=== PATIENT | male | born 1935 | race Caucasian/White ===

== ENCOUNTER 2017-01-23 13:04 | Emergency (ER) | payer MEDICARE ==
[~2017-01-23] VITALS: Ht 172.7 cm; Wt 65.0 kg
[~2017-01-23 13:04] MED LIST: AGGRENOX 200/251 CAP OR; ANTACID OR; ASA LO-DOSE81 MG OR; ATORVASTATIN CA10 MG PO; AZITHROMYCIN500 MG OR; BABY ASPIRIN81 MG OR; BABY ASPIRIN81 MG PO; BACTRIM DS1 TAB PO; BAYER ASPIRIN E81 MG PO; BENZONATATE200 MG PO; CALCIUM + D3 601 TAB PO; CARAFATE OR; CARB/LEVO1 TA5 PO; CARDIZEM CD120 MG PO; CARDIZEM60 MG PO; CINNAMON500 MG PO; CLOPIDOGREL75 MG PO; CO Q 1010 MG PO; COUMADIN2.5 MG OR; COUMADIN5 MG OR; CYCLOBENZAPRINE5 MG; DEPO-MEDROL80 MG/ML IM; DILTIAZEM HCL120 MG PO; DILTIAZEM120 M1 PO; DILTIAZEM120 M2 PO; DILTIAZEM120 M3 PO; DOXYCYCL HYC100 MG PO; FISH OIL CON1000 MG OR; FISH OIL CON300 MG OR; FLEXERIL5 M1 PO; FLOMAX0.4 M1 PO; FLONASE NASAL50 MCG; FLUTICASONE50 MCG IN; GLUCOSAMINE1 TAB OR; GLUCOSAMINE1000 MG OR; GNP RED YEAST RICE PO; HYDROCHLOR12.5 MG/CA PO; HYDROCHLORO25 MG/TAB PO; HYDROCHLOROT12.5 MG PO; HYDROCHLOROT25 MG OR; HYDROCHLOROT25 MG PO; IRON18 M1 OR; IRON325 M1 PO; K-TABS10 MEQ PO; KEFLEX500 MG OR; LASIX 10 MG10 MG/TA1 PO; LASIX 20 MG20 MG/TAB PO; LASIX20 MG PO; LIDOCAINE5 % TOP; LISINOPRIL20 MG OR; LOVASTATIN40 MG OR; MECLIZINE25 MG PO; MENS MULTI PO; MILK OF MAG2 OR; MULTI VITAMN OR; MULTIVITAM10 OR; MYLICON PO; NASONEX50 MCG/AC; NASONEX50 MCG/AC NAB; OMEPRAZOLE40 MG PO; OMNICEF300 MG OR; PERCOCET 5/325M1 TAB PO; PRAVASTATIN SOD20 MG PO; PREDNISONE20 MG PO; PRILOSEC20 MG OR; PRILOSEC20 MG PO; PRILOSEC40 MG PO; PROAIR HFA IN; PROMETHAZINE25 M1 OR; PROMETHAZINE25 MG PO; PROPRANOLOL HCL60 M1 PO; PROPRANOLOL HCL80 MG PO; PROPRANOLOL120 MG PO; PROPRANOLOL60 MG OR; PROPRANOLOL80 M1 OR; PROPRANOLOL80 M1 PO; PROTONIX40 M2 PO; REGLAN10 MG OR; SIMVASTATIN80 MG OR; SINEMET 25/1001 TA1 PO; SPIRIVA HANDIHALER IN; TENORMIN OR; TIZANIDINE HCL2 M1 PO; TRIAM/NYSTAT TOP; TRIAMCINOLON0.11 EX; ULTRAM50 M1 OR; VITAMIN C500 M1 OR; VITAMIN C500 MG OR; WARFARIN1 MG PO; WARFARIN2.5 MG PO; WARFARIN5 MG OR; WARFARIN5 MG PO; ZETIA10 MG OR; ZITHROMAX250 MG PO; ZITHROMAX500 MG PO; ZOSTAVAX IM; [UNRECOGNIZED DRUG - OTHER] PO
[2017-01-23 13:49] LABS: HEMATOCRIT 48.1 % (39.0-50.0); HEMOGLOBIN 15.2 g/dl (14.0-18.0); MEAN CELL VOLUME 89.1 fL CALC (80.0-100.0); MEAN CORPUSCULAR HGB 28.1 pG CALC (26.0-32.0); MEAN CORPUSCULAR HGB CONC 31.6 g/L CALC (32.0-36.0); NEUT# 7.84 thou/uL (1.82-7.42); RED BLOOD COUNT 5.4 mill/uL (4.70-6.10); RED CELL DISTRI WIDTH 18.1 % (11.5-15.5)
[2017-01-23 14:02] LABS: CARBON DIOXIDE 26 mmol/l (22-30); CHLORIDE 102 mmol/l (95-108)
[2017-01-23 14:04] LABS: PROTHROMBIN TIME 23.1 SECONDS (9.0-12.5)
[2017-01-23 14:15] LABS: MYOGLOBIN 28 ng/mL (0 - 121)
[2017-01-23 14:39] LABS: ALKALINE PHOSPHATASE 114 u/l (38-126); ANION GAP 16 (6-22 (CALC)); BUN 22 mg/dL (8-23); BUN/CREATININE RATIO 25 (12-20 (CALC)); CALCIUM 10.3 mg/dL (8.4-10.2); CREATININE 0.9 mg/dL (0.7-1.3); GFR > 60 ML/MIN (>=60 (CALC)); GFR FOR AFR.AMER. > 60 ML/MIN (>=60 (CALC)); GLUCOSE 94 mg/dL (82-115); POTASSIUM 4.8 mmol/l (3.5-5.1); SGOT/AST 48 u/l (19-48); SGPT/ALT 24 u/l (11-66); SODIUM 139 mmol/l (137-146); TOTAL PROTEIN 8.7 g/dL (6.3-8.2)
[2017-01-23 15:08] VITALS: BP 135/67
== END 2017-01-23 15:14 | disposition home or self-care (01) ==
LOC: ED 13:04
PROVIDERS: Emergency Medicine
PROC: 0W993ZZ Drainage of Right Pleural Cavity, Percutaneous Approach (ICD-10-PCS; principal; 2017-01-23)
DX: J90 Pleural effusion, not elsewhere classified (principal); R94.31 Abnormal electrocardiogram [ECG] [EKG]; R06.02 Shortness of breath

== ENCOUNTER 2017-02-12 12:14 | Emergency (ER) | payer MEDICARE ==
[~2017-02-12] VITALS: Ht 172.7 cm; Wt 72.0 kg
[2017-02-12] MEDS ORDERED: PROAIR HFA IN (12:31)
[2017-02-12] MEDS ORDERED: ASPIRIN ADULT L81 MG PO (12:31)
[2017-02-12 12:54] LABS: HEMATOCRIT 43.5 % (39.0-50.0); IMMATURE GRANULOCYTES 1.7 % (0.0-1.0); MEAN CELL VOLUME 91.2 fL CALC (80.0-100.0); MEAN CORPUSCULAR HGB 29.4 pG CALC (26.0-32.0); MEAN CORPUSCULAR HGB CONC 32.2 g/L CALC (32.0-36.0); NEUT# 10.2 thou/uL (1.82-7.42); RED BLOOD COUNT 4.77 mill/uL (4.70-6.10); RED CELL DISTRI WIDTH 16.6 % (11.5-15.5)
[2017-02-12 13:00] LABS: ALBUMIN 3.7 g/dL (3.2-5.0); ALKALINE PHOSPHATASE 72 u/l (38-126); ANION GAP 16 (6-22 (CALC)); BILIRUBIN, TOTAL 0.7 mg/dL (0.0-1.4); BUN 26 mg/dL (8-23); BUN/CREATININE RATIO 36 (12-20 (CALC)); CALCIUM 9.7 mg/dL (8.4-10.2); CARBON DIOXIDE 24 mmol/l (22-30); CHLORIDE 108 mmol/l (95-108); CREATININE 0.7 mg/dL (0.7-1.3); GFR > 60 ML/MIN (>=60 (CALC)); GFR FOR AFR.AMER. > 60 ML/MIN (>=60 (CALC)); GLUCOSE 87 mg/dL (82-115); POTASSIUM 4.8 mmol/l (3.5-5.1); SGOT/AST 41 u/l (19-48); SGPT/ALT 26 u/l (11-66); SODIUM 143 mmol/l (137-146); TOTAL PROTEIN 7.6 g/dL (6.3-8.2)
[2017-02-12 13:12] LABS: MYOGLOBIN 26 ng/mL (0 - 121)
[2017-02-12 13:39] LABS: URINE BILIRUBIN - DIPSTICK NEGATIVE (NEGATIVE); URINE BLOOD DIPSTICK NEGATIVE (NEGATIVE); URINE CLARITY CLEAR; URINE COLOR YELLOW; URINE GLUCOSE - DIPSTICK NEGATIVE (NEGATIVE); URINE KETONE TRACE mg/dL (NEGATIVE); URINE LEUK ESTERASE NEGATIVE (NEGATIVE); URINE NITRITE - DIPSTICK NEGATIVE (Negative); URINE PROTEIN - DIPSTICK NEGATIVE (NEG-TRACE); URINE SPECIFIC GRAVITY 1.025
[2017-02-12 15:50] VITALS: BP 133/63
== END 2017-02-12 15:50 | disposition home or self-care (01) ==
LOC: ED 12:14
PROVIDERS: Emergency Medicine
DX: M62.81 Muscle weakness (generalized) (principal); K21.9 Gastro-esophageal reflux disease without esophagitis; I10 Essential (primary) hypertension; J44.9 Chronic obstructive pulmonary disease, unspecified; E78.5 Hyperlipidemia, unspecified; G25.0 Essential tremor; Z86.73 Personal history of transient ischemic attack (TIA), and cerebral infarction without residual deficits; Z95.1 Presence of aortocoronary bypass graft; Z95.0 Presence of cardiac pacemaker; R94.31 Abnormal electrocardiogram [ECG] [EKG]

== ENCOUNTER 2017-02-18 23:47 | Emergency (ER) | payer MEDICARE ==
[~2017-02-18] VITALS: Ht 172.7 cm; Wt 63.6 kg
[~2017-02-18 23:47] MED LIST changes: +ASPIRIN ADULT L81 MG PO
[2017-02-19 01:00] VITALS: BP 166/79
== END 2017-02-19 01:18 | disposition home or self-care (01) ==
LOC: ED 23:47
PROC: 0HQ1XZZ Repair Face Skin, External Approach (ICD-10-PCS; principal; 2017-02-19)
DX: S01.81XA Laceration without foreign body of other part of head, initial encounter (principal); S41.112A Laceration without foreign body of left upper arm, initial encounter; W06.XXXA Fall from bed, initial encounter; Y93.89 Activity, other specified; Y92.003 Bedroom of unspecified non-institutional (private) residence as the place of occurrence of the external cause

== ENCOUNTER 2017-02-27 14:08 | Inpatient (IN) | payer MEDICARE ==
[~2017-02-27] VITALS: Ht 172.7 cm; Wt 62.0 kg
[2017-02-27 15:02] LABS: HEMATOCRIT 40.9 % (39.0-50.0); HEMOGLOBIN 13.6 g/dl (14.0-18.0); IMMATURE GRANULOCYTES 0.9 % (0.0-1.0); MEAN CELL VOLUME 90.3 fL CALC (80.0-100.0); MEAN CORPUSCULAR HGB CONC 33.3 g/L CALC (32.0-36.0); NEUT# 6.95 thou/uL (1.82-7.42); RED BLOOD COUNT 4.53 mill/uL (4.70-6.10); RED CELL DISTRI WIDTH 15.5 % (11.5-15.5)
[2017-02-27 15:20] LABS: ALBUMIN 3.4 g/dL (3.2-5.0); ALKALINE PHOSPHATASE 83 u/l (38-126); ANION GAP 17 (6-22 (CALC)); BILIRUBIN, TOTAL 0.7 mg/dL (0.0-1.4); BUN 17 mg/dL (8-23); BUN/CREATININE RATIO 21 (12-20 (CALC)); CALCIUM 9.5 mg/dL (8.4-10.2); CARBON DIOXIDE 23 mmol/l (22-30); CHLORIDE 107 mmol/l (95-108); CREATININE 0.8 mg/dL (0.7-1.3); GFR > 60 ML/MIN (>=60 (CALC)); GFR FOR AFR.AMER. > 60 ML/MIN (>=60 (CALC)); GLUCOSE 108 mg/dL (82-115); POTASSIUM 4.4 mmol/l (3.5-5.1); SGOT/AST 24 u/l (19-48); SGPT/ALT 23 u/l (11-66); SODIUM 143 mmol/l (137-146); TOTAL PROTEIN 7.6 g/dL (6.3-8.2)
[2017-02-27 15:24] LABS: INTERNATIONAL NORMALIZED RATIO 2.6 RATIO (0.7-1.3); PROTHROMBIN TIME 29.9 SECONDS (9.0-12.5)
[2017-02-27] MEDS ORDERED: COUMADIN2.5 MG PO (17:02)
[2017-02-27] MEDS ORDERED: DILTIAZEM60 M1 PO (17:04)
[2017-02-27] MEDS ORDERED: INDERAL 40MG TA40 MG PO (17:05)
[2017-02-27] MEDS ORDERED: SINEMET CR PO (17:06)
[2017-02-27 17:27] LABS: URINE BILIRUBIN - DIPSTICK NEGATIVE (NEGATIVE); URINE BLOOD DIPSTICK NEGATIVE (NEGATIVE); URINE CLARITY CLEAR; URINE COLOR YELLOW; URINE GLUCOSE - DIPSTICK NEGATIVE (NEGATIVE); URINE KETONE NEGATIVE (NEGATIVE); URINE LEUK ESTERASE NEGATIVE (NEGATIVE); URINE NITRITE - DIPSTICK NEGATIVE (Negative); URINE PROTEIN - DIPSTICK NEGATIVE (NEG-TRACE); URINE SPECIFIC GRAVITY 1.025
[2017-02-27 18:08] VITALS: BP 175/93
[2017-02-28] VITALS (8 sets, daily range): BP systolic 94–156; BP diastolic 45–99
[2017-02-28 05:43] LABS: HEMATOCRIT 40.8 % (39.0-50.0); HEMOGLOBIN 13.4 g/dl (14.0-18.0); MEAN CELL VOLUME 90.9 fL CALC (80.0-100.0); MEAN CORPUSCULAR HGB 29.8 pG CALC (26.0-32.0); MEAN CORPUSCULAR HGB CONC 32.8 g/L CALC (32.0-36.0); NEUT# 6.27 thou/uL (1.82-7.42); RED BLOOD COUNT 4.49 mill/uL (4.70-6.10); RED CELL DISTRI WIDTH 15.4 % (11.5-15.5)
[2017-02-28 06:02] LABS: ANION GAP 14 (6-22 (CALC)); BUN 15 mg/dL (8-23); BUN/CREATININE RATIO 20 (12-20 (CALC)); CALCIUM 9.2 mg/dL (8.4-10.2); CARBON DIOXIDE 26 mmol/l (22-30); CHLORIDE 105 mmol/l (95-108); CREATININE 0.8 mg/dL (0.7-1.3); GFR > 60 ML/MIN (>=60 (CALC)); GFR FOR AFR.AMER. > 60 ML/MIN (>=60 (CALC)); GLUCOSE 72 mg/dL (82-115); POTASSIUM 4.3 mmol/l (3.5-5.1); SODIUM 141 mmol/l (137-146)
[2017-02-28 09:25] LABS: PROTHROMBIN TIME 23.2 SECONDS (9.0-12.5)
[2017-03-01 03:30] VITALS: BP 128/80
[2017-03-01 05:10] LABS: INTERNATIONAL NORMALIZED RATIO 1.9 RATIO (0.7-1.3); PROTHROMBIN TIME 21.4 SECONDS (9.0-12.5)
[2017-03-01 08:31] VITALS: BP 133/86
[2017-03-01 12:43] VITALS: BP 114/68
[2017-03-01 15:47] VITALS: BP 112/67
[2017-03-01 19:25] VITALS: BP 124/76
[2017-03-01 23:47] VITALS: BP 101/59
[2017-03-02 04:45] VITALS: BP 105/64
[2017-03-02 08:10] VITALS: BP 122/66
[2017-03-02 09:49] LABS: PROTHROMBIN TIME 22.8 SECONDS (9.0-12.5)
[2017-03-02 11:11] VITALS: BP 130/72
[2017-03-02] MEDS ORDERED: TRAMADOL HCL50 MG PO (12:47)
[2017-03-02] MEDS ORDERED: ZITHROMAX500 MG PO (13:15)
[2017-03-02] MEDS ORDERED: INVANZ1 GM IJ (13:15)
[2017-03-02 16:49] VITALS: BP 122/65
[2017-03-02 20:45] VITALS: BP 105/63
[2017-03-03 00:55] VITALS: BP 139/76
[2017-03-03 04:47] VITALS: BP 127/81
[2017-03-03 05:55] LABS: HEMATOCRIT 39.7 % (39.0-50.0); HEMOGLOBIN 12.7 g/dl (14.0-18.0); IMMATURE GRANULOCYTES 1.1 % (0.0-1.0); MEAN CELL VOLUME 92.8 fL CALC (80.0-100.0); MEAN CORPUSCULAR HGB 29.7 pG CALC (26.0-32.0); NEUT# 6.45 thou/uL (1.82-7.42); RED BLOOD COUNT 4.28 mill/uL (4.70-6.10); RED CELL DISTRI WIDTH 15.2 % (11.5-15.5)
[2017-03-03 06:12] LABS: ANION GAP 14 (6-22 (CALC)); BUN 15 mg/dL (8-23); BUN/CREATININE RATIO 23 (12-20 (CALC)); CALCIUM 8.8 mg/dL (8.4-10.2); CARBON DIOXIDE 24 mmol/l (22-30); CHLORIDE 106 mmol/l (95-108); CREATININE 0.6 mg/dL (0.7-1.3); GFR > 60 ML/MIN (>=60 (CALC)); GFR FOR AFR.AMER. > 60 ML/MIN (>=60 (CALC)); GLUCOSE 76 mg/dL (82-115); INTERNATIONAL NORMALIZED RATIO 2.3 RATIO (0.7-1.3); POTASSIUM 4.3 mmol/l (3.5-5.1); PROTHROMBIN TIME 26.6 SECONDS (9.0-12.5); SODIUM 140 mmol/l (137-146)
[2017-03-03 08:14] VITALS: BP 154/89
[2017-03-03 11:09] VITALS: BP 123/62
[2017-03-03 15:00] VITALS: BP 112/57
[2017-03-03 19:18] VITALS: BP 128/67
[2017-03-04 00:20] VITALS: BP 113/77
[2017-03-04 04:00] VITALS: BP 116/70
[2017-03-04 05:18] VITALS: BP 142/75
[2017-03-04 05:37] LABS: INTERNATIONAL NORMALIZED RATIO 2.6 RATIO (0.7-1.3); PROTHROMBIN TIME 30.6 SECONDS (9.0-12.5)
[2017-03-04 09:12] VITALS: BP 132/77
[2017-03-04 11:23] VITALS: BP 114/56
[2017-03-04] MEDS ORDERED: INVANZ1 GM IJ (11:55)
[2017-03-04] MEDS ORDERED: ZITHROMAX500 MG PO (11:55)
== END 2017-03-04 14:35 | DRG 190 ==
LOC: ENPENDDIS → ED 14:08 → ED-I 16:58 → ED 17:20 → MS2 17:21
PROVIDERS: Emergency Medicine; Internal Medicine; ADMIT Internal Medicine; ATTEND Internal Medicine
DX: J44.0 Chronic obstructive pulmonary disease with (acute) lower respiratory infection (principal); J18.9 Pneumonia, unspecified organism; I48.91 Unspecified atrial fibrillation; Z99.81 Dependence on supplemental oxygen; Z95.1 Presence of aortocoronary bypass graft; S01.91XA Laceration without foreign body of unspecified part of head, initial encounter; S00.83XA Contusion of other part of head, initial encounter; K27.9 Peptic ulcer, site unspecified, unspecified as acute or chronic, without hemorrhage or perforation; S80.02XA Contusion of left knee, initial encounter; S30.1XXA Contusion of abdominal wall, initial encounter; S70.02XA Contusion of left hip, initial encounter; I25.10 Atherosclerotic heart disease of native coronary artery without angina pectoris; R53.1 Weakness; K21.9 Gastro-esophageal reflux disease without esophagitis; I10 Essential (primary) hypertension; E78.5 Hyperlipidemia, unspecified; G25.0 Essential tremor; W18.39XA Other fall on same level, initial encounter; Y92.009 Unspecified place in unspecified non-institutional (private) residence as the place of occurrence of the external cause; Z87.891 Personal history of nicotine dependence; Z90.3 Acquired absence of stomach [part of]; Z91.81 History of falling; Z88.8 Allergy status to other drugs, medicaments and biological substances; Z86.73 Personal history of transient ischemic attack (TIA), and cerebral infarction without residual deficits; Z95.820 Peripheral vascular angioplasty status with implants and grafts; Z95.0 Presence of cardiac pacemaker; Z79.01 Long term (current) use of anticoagulants
CPT/HCPCS: J1335; Q9967

== ENCOUNTER 2017-03-14 04:17 | Inpatient (IN) | payer MEDICARE ==
[2017-03-14] VITALS (7 sets, daily range): BP systolic 140–170; BP diastolic 79–93
[~2017-03-14] VITALS: Ht 172.7 cm; Wt 63.0 kg
[~2017-03-14 04:17] MED LIST changes: +COUMADIN2.5 MG PO; +DILTIAZEM60 M1 PO; +INDERAL 40MG TA40 MG PO; +INVANZ1 GM IJ; +SINEMET CR PO; +TRAMADOL HCL50 MG PO
[2017-03-14] MEDS ORDERED: INDERAL 40MG TA40 MG PO (04:35)
[2017-03-14] MEDS ORDERED: COUMADIN2.5 MG PO (04:36)
[2017-03-14] MEDS ORDERED: COUMADIN5 MG PO (04:37)
[2017-03-14] MEDS ORDERED: PRILOSEC20 MG PO (04:39)
[2017-03-14] MEDS ORDERED: SINEMET 25/1001 TA1 PO (04:41)
[2017-03-14] MEDS ORDERED: [UNRECOGNIZED DRUG - CODE] PO (04:43)
[2017-03-14 05:22] LABS: HEMATOCRIT 36.5 % (39.0-50.0); HEMOGLOBIN 11.7 g/dl (14.0-18.0); IMMATURE GRANULOCYTES 0.8 % (0.0-1.0); MEAN CELL VOLUME 94.3 fL CALC (80.0-100.0); MEAN CORPUSCULAR HGB 30.2 pG CALC (26.0-32.0); MEAN CORPUSCULAR HGB CONC 32.1 g/L CALC (32.0-36.0); NEUT# 8.26 thou/uL (1.82-7.42); RED BLOOD COUNT 3.87 mill/uL (4.70-6.10); RED CELL DISTRI WIDTH 14.9 % (11.5-15.5)
[2017-03-14 05:22] LABS: URINE BILIRUBIN - DIPSTICK NEGATIVE (NEGATIVE); URINE BLOOD DIPSTICK TRACE-INTACT (NEGATIVE); URINE CLARITY CLEAR; URINE COLOR YELLOW; URINE GLUCOSE - DIPSTICK NEGATIVE (NEGATIVE); URINE KETONE NEGATIVE (NEGATIVE); URINE LEUK ESTERASE NEGATIVE (NEGATIVE); URINE NITRITE - DIPSTICK NEGATIVE (Negative); URINE PROTEIN - DIPSTICK NEGATIVE (NEG-TRACE); URINE UROBILINOGEN - DIPSTICK 0.2 E.U./dL (0.2)
[2017-03-14 05:42] LABS: INTERNATIONAL NORMALIZED RATIO 4.5 RATIO (0.7-1.3)
[2017-03-14 05:44] LABS: PROTHROMBIN TIME 54.8 SECONDS (9.0-12.5)
[2017-03-14 06:13] LABS: ALBUMIN 3.1 g/dL (3.2-5.0); ALKALINE PHOSPHATASE 117 u/l (38-126); ANION GAP 12 (6-22 (CALC)); BILIRUBIN, TOTAL 0.7 mg/dL (0.0-1.4); BUN 13 mg/dL (8-23); BUN/CREATININE RATIO 23 (12-20 (CALC)); CALCIUM 8.7 mg/dL (8.4-10.2); CARBON DIOXIDE 22 mmol/l (22-30); CHLORIDE 109 mmol/l (95-108); CREATININE 0.6 mg/dL (0.7-1.3); GFR > 60 ML/MIN (>=60 (CALC)); GFR FOR AFR.AMER. > 60 ML/MIN (>=60 (CALC)); GLUCOSE 84 mg/dL (82-115); POTASSIUM 3.6 mmol/l (3.5-5.1); SGOT/AST 22 u/l (19-48); SGPT/ALT 34 u/l (11-66); SODIUM 139 mmol/l (137-146)
[2017-03-15 05:15] VITALS: BP 156/64
[2017-03-15 05:35] LABS: HEMATOCRIT 31.9 % (39.0-50.0); HEMOGLOBIN 10.4 g/dl (14.0-18.0); MEAN CELL VOLUME 93.5 fL CALC (80.0-100.0); MEAN CORPUSCULAR HGB 30.5 pG CALC (26.0-32.0); MEAN CORPUSCULAR HGB CONC 32.6 g/L CALC (32.0-36.0); NEUT# 8.95 thou/uL (1.82-7.42); RED BLOOD COUNT 3.41 mill/uL (4.70-6.10); RED CELL DISTRI WIDTH 14.6 % (11.5-15.5)
[2017-03-15 05:46] LABS: ANION GAP 11 (6-22 (CALC)); BUN 9 mg/dL (8-23); BUN/CREATININE RATIO 18 (12-20 (CALC)); CALCIUM 8.7 mg/dL (8.4-10.2); CARBON DIOXIDE 23 mmol/l (22-30); CHLORIDE 105 mmol/l (95-108); CREATININE 0.5 mg/dL (0.7-1.3); GFR > 60 ML/MIN (>=60 (CALC)); GFR FOR AFR.AMER. > 60 ML/MIN (>=60 (CALC)); GLUCOSE 86 mg/dL (82-115); POTASSIUM 4.2 mmol/l (3.5-5.1); SODIUM 135 mmol/l (137-146)
[2017-03-15 05:48] LABS: INTERNATIONAL NORMALIZED RATIO 1.1 RATIO (0.7-1.3); PROTHROMBIN TIME 12.2 SECONDS (9.0-12.5)
[2017-03-15 07:44] VITALS: BP 135/74
[2017-03-15] MEDS ORDERED: LORTAB 5-325 MG1 TAB PO (10:58)
[2017-03-15 12:30] VITALS: BP 136/71
[2017-03-15 14:17] LABS: URINE BLOOD DIPSTICK NEGATIVE (NEGATIVE); URINE CLARITY CLEAR; URINE COLOR YELLOW; URINE GLUCOSE - DIPSTICK NEGATIVE (NEGATIVE); URINE KETONE NEGATIVE (NEGATIVE); URINE LEUK ESTERASE NEGATIVE (NEGATIVE); URINE NITRITE - DIPSTICK NEGATIVE (Negative); URINE PROTEIN - DIPSTICK TRACE mg/dL (NEG-TRACE)
[2017-03-15 14:19] LABS: URINE BILIRUBIN - DIPSTICK NEGATIVE (NEGATIVE)
== END 2017-03-15 16:01 | DRG 948 ==
LOC: ENPENDDIS → ED 04:17 → ED-I 06:38 → ED 06:53 → MS2 06:54
PROVIDERS: Emergency Medicine; Internal Medicine; Nurse Practitioner Family; ADMIT Internal Medicine; ATTEND Internal Medicine
PROC: 30233K1 Transfusion of Nonautologous Frozen Plasma into Peripheral Vein, Percutaneous Approach (ICD-10-PCS; principal; 2017-03-14)
DX: R79.1 Abnormal coagulation profile (principal); S32.029A Unspecified fracture of second lumbar vertebra, initial encounter for closed fracture; I48.91 Unspecified atrial fibrillation; J44.9 Chronic obstructive pulmonary disease, unspecified; E78.5 Hyperlipidemia, unspecified; I10 Essential (primary) hypertension; G25.0 Essential tremor; T45.515A Adverse effect of anticoagulants, initial encounter; R53.1 Weakness; I25.10 Atherosclerotic heart disease of native coronary artery without angina pectoris; K21.9 Gastro-esophageal reflux disease without esophagitis; S00.93XA Contusion of unspecified part of head, initial encounter; S30.0XXA Contusion of lower back and pelvis, initial encounter; W18.30XA Fall on same level, unspecified, initial encounter; S32.039D Unspecified fracture of third lumbar vertebra, subsequent encounter for fracture with routine healing; S22.089D Unspecified fracture of T11-T12 vertebra, subsequent encounter for fracture with routine healing; X58.XXXD Exposure to other specified factors, subsequent encounter; Y92.029 Unspecified place in mobile home as the place of occurrence of the external cause; Z86.73 Personal history of transient ischemic attack (TIA), and cerebral infarction without residual deficits; Z91.81 History of falling; Z87.891 Personal history of nicotine dependence; Z95.820 Peripheral vascular angioplasty status with implants and grafts; Z95.1 Presence of aortocoronary bypass graft; Z95.0 Presence of cardiac pacemaker

== ENCOUNTER 2017-06-21 11:16 | Observation (INO) | payer MEDICARE ==
[~2017-06-21] VITALS: Ht 170.2 cm; Wt 72.1 kg
[~2017-06-21 11:16] MED LIST changes: +COUMADIN5 MG PO; +LORTAB 5-325 MG1 TAB PO; +[UNRECOGNIZED DRUG - CODE] PO
[2017-06-21 12:04] LABS: HEMATOCRIT 40.5 % (39.0-50.0); HEMOGLOBIN 12.8 g/dl (14.0-18.0); IMMATURE GRANULOCYTES 0.5 % (0.0-1.0); MEAN CELL VOLUME 93.3 fL CALC (80.0-100.0); MEAN CORPUSCULAR HGB 29.5 pG CALC (26.0-32.0); MEAN CORPUSCULAR HGB CONC 31.6 g/L CALC (32.0-36.0); NEUT# 5.59 thou/uL (1.82-7.42); RED BLOOD COUNT 4.34 mill/uL (4.70-6.10)
[2017-06-21 12:18] LABS: ALBUMIN 3.5 g/dL (3.2-5.0); ALKALINE PHOSPHATASE 127 u/l (38-126); ANION GAP 15 (6-22 (CALC)); BILIRUBIN, TOTAL 1.5 mg/dL (0.0-1.4); BUN 21 mg/dL (8-23); BUN/CREATININE RATIO 27 (12-20 (CALC)); CALCIUM 9.1 mg/dL (8.4-10.2); CARBON DIOXIDE 26 mmol/l (22-30); CHLORIDE 101 mmol/l (95-108); CREATININE 0.8 mg/dL (0.7-1.3); GFR > 60 ML/MIN (>=60 (CALC)); GFR FOR AFR.AMER. > 60 ML/MIN (>=60 (CALC)); GLUCOSE 110 mg/dL (82-115); INTERNATIONAL NORMALIZED RATIO 1.6 RATIO (0.7-1.3); PROTHROMBIN TIME 18.2 SECONDS (9.0-12.5); SGOT/AST 72 u/l (19-48); SGPT/ALT 24 u/l (11-66); SODIUM 139 mmol/l (137-146)
[2017-06-21 17:20] VITALS: BP 200/113
[2017-06-21 17:45] VITALS: BP 206/102
[2017-06-21 19:25] VITALS: BP 90/44
[2017-06-21 20:43] VITALS: BP 95/50
[2017-06-22 00:20] VITALS: BP 99/55
[2017-06-22 04:32] VITALS: BP 110/54
[2017-06-22 08:23] VITALS: BP 125/74
[2017-06-22 13:00] VITALS: BP 105/61
[2017-06-22] MEDS ORDERED: INDERAL 20MG TA20 MG PO (14:56)
[2017-06-22] MEDS ORDERED: AMLODIPINE BESYL5 MG PO (14:57)
== END 2017-06-22 15:15 | disposition home or self-care (01) ==
LOC: ED 11:16 → ED-I 11:35 → ED 11:35 → ED-I 13:55 → ED 14:28 → MS2 14:29
PROVIDERS: Emergency Medicine; ADMIT Internal Medicine; ATTEND Internal Medicine
DX: R55 Syncope and collapse (principal); K21.9 Gastro-esophageal reflux disease without esophagitis; I10 Essential (primary) hypertension; J44.9 Chronic obstructive pulmonary disease, unspecified; E78.5 Hyperlipidemia, unspecified; I48.91 Unspecified atrial fibrillation; I25.10 Atherosclerotic heart disease of native coronary artery without angina pectoris; I73.9 Peripheral vascular disease, unspecified; Z79.01 Long term (current) use of anticoagulants; Z95.1 Presence of aortocoronary bypass graft; Z86.73 Personal history of transient ischemic attack (TIA), and cerebral infarction without residual deficits; Z95.0 Presence of cardiac pacemaker; Z95.820 Peripheral vascular angioplasty status with implants and grafts; Z87.891 Personal history of nicotine dependence

== ENCOUNTER 2017-07-10 10:29 | Inpatient (IN) | payer MEDICARE ==
[~2017-07-10] VITALS: Ht 170.2 cm; Wt 66.2 kg
[~2017-07-10 10:29] MED LIST changes: +AMLODIPINE BESYL5 MG PO; +INDERAL 20MG TA20 MG PO
--- NOTE | 2017-07-10 10:40 | NUR ---
TO ROOM 13 VIA WC IN STABLE CONDITION. PT PLACED ON 02 AT 3L VIA NC. DURING TRIAGE LIPS AND NAIL BEDS APPEAR CYANOTIC WITH 02 SATS OF 85%-86%/ PT REPORTS OXYGEN USE DAILY BUT DIDN'T WEAR HIS OXYGEN INTO THE ER.
[2017-07-10] MEDS ORDERED: COUMADIN2.5 MG PO (10:50)
--- NOTE | 2017-07-10 11:11 | NUR ---
WARM BLANKETS GIVEN PER PT REQUEST. STATES IS JUST GETTING OVER A COLD, HE IS ON OXYGEN 4 L PER NC AND HAS BEEN TO HIS DOCTOR FOR COMPLAINT.
[2017-07-10 11:38] LABS: INTERNATIONAL NORMALIZED RATIO 3.4 RATIO (0.7-1.3); PROTHROMBIN TIME 40.2 SECONDS (9.0-12.5)
--- NOTE | 2017-07-10 12:20 | NUR ---
PT REMAINS IN CT. SCAN, IN ROOM, VITAL SIGNS WERE STABLE WHEN PT LEFT ER
--- NOTE | 2017-07-10 13:35 | NUR ---
ADVISED OF CONTINUED WAIT TIME FOR XRAY RESULTS.
--- NOTE | 2017-07-10 14:25 | NUR ---
PT STATES LEG IS HURTING, ADVISED WHAT DR. SMITH PLAN IS , PT ACKNOWLEDGES THAT HE IS OKAY WITH BEING ADMITTED.
[2017-07-10 14:50] LABS: HEMATOCRIT 39.4 % (39.0-50.0); HEMOGLOBIN 12.8 g/dl (14.0-18.0); IMMATURE GRANULOCYTES 0.3 % (0.0-1.0); MEAN CELL VOLUME 91.2 fL CALC (80.0-100.0); MEAN CORPUSCULAR HGB 29.6 pG CALC (26.0-32.0); MEAN CORPUSCULAR HGB CONC 32.5 g/L CALC (32.0-36.0); NEUT# 3.58 thou/uL (1.82-7.42); RED BLOOD COUNT 4.32 mill/uL (4.70-6.10); RED CELL DISTRI WIDTH 15.6 % (11.5-15.5)
[2017-07-10 15:06] LABS: ALBUMIN 3.7 g/dL (3.2-5.0); ALKALINE PHOSPHATASE 131 u/l (38-126); ANION GAP 14 (6-22 (CALC)); BILIRUBIN, TOTAL 1.4 mg/dL (0.0-1.4); BUN 16 mg/dL (8-23); BUN/CREATININE RATIO 25 (12-20 (CALC)); CALCIUM 9.2 mg/dL (8.4-10.2); CARBON DIOXIDE 26 mmol/l (22-30); CHLORIDE 103 mmol/l (95-108); CREATININE 0.6 mg/dL (0.7-1.3); GFR > 60 ML/MIN (>=60 (CALC)); GFR FOR AFR.AMER. > 60 ML/MIN (>=60 (CALC)); GLUCOSE 81 mg/dL (82-115); POTASSIUM 4.1 mmol/l (3.5-5.1); SGOT/AST 29 u/l (19-48); SGPT/ALT 21 u/l (11-66); SODIUM 139 mmol/l (137-146); TOTAL PROTEIN 7.6 g/dL (6.3-8.2)
--- NOTE | 2017-07-10 16:44 | NUR ---
AZACTAM ANTIBIOTICS HUNG PER ORDER. PT REMAINS ALERT/ORIENTED X3, STATES HE IS HUNGWATERFALL.
--- NOTE | 2017-07-10 17:00 | NUR ---
REPORT GIVEN TO CHANCE FOR CONTINUATION OF CARE.
--- NOTE | 2017-07-10 17:05 | NUR ---
FROM ER VIA WHEELCHAIR ACCOMPANIED BY MADELINE LOUISE. AMBULATED TO BED WITH MINIMAL ASSIST. RESPS LABORED ON O2 VIA NC. HEMATOMA TO LEFT LOWER LEG. REQUESTS FOOD AND DRINK. ORIENTED TO ROOM AND CALL SYSTEM. PO FLUIDS OFFERED. MEAL TRAY ORDERED. SAFETY PRECAUTIONS REINFORCED. BED IN LOWEST POSITION WITH WHEELS LOCKED. CALL LIGHT WITHIN REACH. AT BEDSIDE. ENCOURAGED PT AND TO CALL FOR ANY NEEDS.
--- NOTE | 2017-07-10 17:16 | NUR ---
PT TAKEN TO MED SURG PER W/C WITH AT BEDSIDE
[2017-07-10 17:20] VITALS: BP 150/85
--- NOTE | 2017-07-10 19:15 | NUR ---
PHONED DR DALTON. AND REQUESTED PAIN MEDICATION FOR PT. ORDER RECEIVED AND WILL MEDICATE PATIENT PER MD ORDERS.
--- NOTE | 2017-07-10 19:15 | NUR ---
PT RESTING IN BED WITH EYES CLOSED. AROUSES TO VERBAL STIMULLI. PT IS ALERT AND ORIENTED X3. PERRLA. RESP ARE EVEN AND UNLABORED. WHEEZING HEARD IN BASES OF LUNGS. PT IS ON O2 2L NC. HR REGULAR. NO EDEMA NOTED. PULSES PALPABLE THROUGHOUT. BS ACTIVE. LARGE HEMATOMA TO LEFT CALF. RED, WARM AND BRUISING NOTED AROUND AREA. #22 LEFT UPPER ARM. NO REDNESS OR EDEMA NOTED AT SITE. PT IS COMPLAINING O FPAIN 9/10 TO LLE. WILL CONTINUE TO MONITOR.
--- NOTE | 2017-07-11 | NUR ---
PT RESTING IN BED WITH EYES CLOSED. RESP ARE EVEN AND UNLABORED. NO DISTRESS NOTED. NO CHANGE IN PT STATUS. WILL CONTINUE TO MONITOR.
[2017-07-11 00:01] VITALS: BP 117/64
--- NOTE | 2017-07-11 04:39 | NUR ---
PT RESTING IN BED WITH EYES CLOSED. RESP ARE EVEN AND UNLABORED. NO DISTRESS NOTED. NO CHANGE IN PT STATUS. WILL CONTINUNE TO MONITOR.
[2017-07-11 05:58] LABS: HEMOGLOBIN 11.8 g/dl (14.0-18.0); MEAN CELL VOLUME 91.8 fL CALC (80.0-100.0); MEAN CORPUSCULAR HGB 29.3 pG CALC (26.0-32.0); MEAN CORPUSCULAR HGB CONC 31.9 g/L CALC (32.0-36.0); RED BLOOD COUNT 4.03 mill/uL (4.70-6.10)
[2017-07-11 06:27] LABS: ANION GAP 14 (6-22 (CALC)); BUN 16 mg/dL (8-23); BUN/CREATININE RATIO 25 (12-20 (CALC)); CARBON DIOXIDE 24 mmol/l (22-30); CHLORIDE 105 mmol/l (95-108); CREATININE 0.6 mg/dL (0.7-1.3); GFR > 60 ML/MIN (>=60 (CALC)); GFR FOR AFR.AMER. > 60 ML/MIN (>=60 (CALC)); GLUCOSE 121 mg/dL (82-115); POTASSIUM 4.2 mmol/l (3.5-5.1); SODIUM 139 mmol/l (137-146)
[2017-07-11 06:35] LABS: INTERNATIONAL NORMALIZED RATIO 2.3 RATIO (0.7-1.3); PROTHROMBIN TIME 26.1 SECONDS (9.0-12.5)
[2017-07-11 06:52] VITALS: BP 117/69
--- NOTE | 2017-07-11 07:36 | NUR ---
REPORT RECEIVED FROM NIGHT NURSE, PT.IS SLEEPING AT THIST TIME W/LIGHTS OUT. NO S/S OF DISTRESS AND CALL LIGHT IS AT SIDE W/IN REACH. WILL F/UP W/ASSESSMENT, V/S AND AM MEDICATIONS ORDERED
[2017-07-11 08:15] VITALS: BP 121/64
[2017-07-11 11:34] VITALS: BP 117/67
--- NOTE | 2017-07-11 14:15 | NUR ---
PT.MEDICATED WITH IV ANTIBIOTIC THERAPY, AT BS, PT.REQUSTED ICECREAM/PROVIDED. PT.REPORTS THAT HE WALKED REALLY WELL WITH P.T. USING SMALLER STANDARD WALKER.
--- NOTE | 2017-07-11 15:40 | NUR ---
SPOKE WITH PT ON DAILY ROUNDS. COMPLAINED OF FREQUENT COUGHING FITS, MORE LIKE A TICKLE IN THE BACK OF HIS THROAT HE COULDN'T GET RID OF. SPOKE WITH SEBASTIAN AND SHE EVALUATED PT. ADDED MUCINEX TO MEDICATION REGIMEN TO HELP LOOSEN UP FLUID AND WILL RE-ASSESS TOMORROW.
[2017-07-11 16:01] VITALS: BP 121/64
--- NOTE | 2017-07-11 18:15 | NUR ---
PT.MEDICATED ORDERS PROVIDE, PT.IN BED SITTING UP WATCHING TV, IS LEAVING AT THIS TIME, PT.IS PROVIDED LOTION AND ASSISTED WITH LOTION ON FEET AND BETWEEN TOES ORDERED DAILY.
--- NOTE | 2017-07-11 19:10 | NUR ---
RECEIVED CHANGE OF SHIFT REPORT FROM ASPEN SINGH. PATIENT LYING IN BED AND APPEAR NOT TO BE IN ANY APPARENT ACUTE DISTRESS OR DISCOMFORT. DENIES PAIN. WILL CONTINUE TO MONITOR.
[2017-07-11 19:25] VITALS: BP 122/64
--- NOTE | 2017-07-12 | NUR ---
PATIENT LYING IN BED WITH EYES CLOSED AND APPEARS TO BE ASLEEP. NO APPARENT ACUTE DISTRESS NOTED.
--- NOTE | 2017-07-12 04:00 | NUR ---
NO APPARENT ACUTE CHANGES NOTED IN PATIENT'S CONDITION.
[2017-07-12 04:15] VITALS: BP 126/71
[2017-07-12 06:06] LABS: HEMATOCRIT 34.5 % (39.0-50.0); HEMOGLOBIN 11.3 g/dl (14.0-18.0); IMMATURE GRANULOCYTES 0.5 % (0.0-1.0); MEAN CELL VOLUME 89.6 fL CALC (80.0-100.0); MEAN CORPUSCULAR HGB 29.4 pG CALC (26.0-32.0); MEAN CORPUSCULAR HGB CONC 32.8 g/L CALC (32.0-36.0); NEUT# 6.08 thou/uL (1.82-7.42); RED BLOOD COUNT 3.85 mill/uL (4.70-6.10); RED CELL DISTRI WIDTH 14.8 % (11.5-15.5)
[2017-07-12 06:12] LABS: ANION GAP 11 (6-22 (CALC)); BUN 21 mg/dL (8-23); BUN/CREATININE RATIO 33 (12-20 (CALC)); CALCIUM 8.9 mg/dL (8.4-10.2); CARBON DIOXIDE 24 mmol/l (22-30); CHLORIDE 104 mmol/l (95-108); CREATININE 0.6 mg/dL (0.7-1.3); GFR > 60 ML/MIN (>=60 (CALC)); GFR FOR AFR.AMER. > 60 ML/MIN (>=60 (CALC)); GLUCOSE 133 mg/dL (82-115); MAGNESIUM 2.1 mg/dL (1.6-2.3); POTASSIUM 4.1 mmol/l (3.5-5.1); SODIUM 135 mmol/l (137-146)
[2017-07-12 06:19] LABS: INTERNATIONAL NORMALIZED RATIO 2.5 RATIO (0.7-1.3); PROTHROMBIN TIME 29.7 SECONDS (9.0-12.5)
--- NOTE | 2017-07-12 07:50 | NUR ---
ASSESSMENT IS COMPLETED: IV SITE IS FREE FROM REDNESS OR EDEMA. NO DISTRESS NOTED. CONTINUE TO OBSERVE AND MONITOR.
[2017-07-12 08:17] VITALS: BP 155/81
--- NOTE | 2017-07-12 12:15 | NUR ---
PT IS SITTING ON THE SIDE OF THE BED WITH NO DISTRESS NOTED. IV SITE IS FREE FROM REDNESS OR EDEMA.CONTINUE TO OBSERVE AND MONITOR.
[2017-07-12] MEDS ORDERED: DOXYCYCL HYC100 MG PO (13:19)
[2017-07-12] MEDS ORDERED: IPRATROPIU0.5 MG/3 M NEB (13:19)
[2017-07-12] MEDS ORDERED: PREDNISONE10 MG PO (13:19)
[2017-07-12] MEDS ORDERED: FLORASTOR250 M1 PO (13:22)
--- NOTE | 2017-07-12 15:06 | NUR ---
PT REQUESTING A BREATHING TREATMENT/
--- NOTE | 2017-07-12 16:15 | NUR ---
DISCHARGE INSTRUCTIONS GIVEN AND IV SITE DISCONTINUED CATHETER INTACT. FAMILY IN THE ROOM. BREATHING TX WAS GIVEN.
== END 2017-07-12 17:10 | disposition home or self-care (01) | DRG 190 ==
LOC: ED 10:29 → ED-I 15:00 → ED 16:48 → MS2 16:49
PROVIDERS: Emergency Medicine; Nurse Practitioner Family; ADMIT Internal Medicine; ATTEND Internal Medicine
DX: J44.0 Chronic obstructive pulmonary disease with (acute) lower respiratory infection (principal); J18.9 Pneumonia, unspecified organism; G20 Parkinson's disease; Z99.81 Dependence on supplemental oxygen; I48.91 Unspecified atrial fibrillation; E87.1 Hypo-osmolality and hyponatremia; D64.9 Anemia, unspecified; M79.81 Nontraumatic hematoma of soft tissue; J44.1 Chronic obstructive pulmonary disease with (acute) exacerbation; I10 Essential (primary) hypertension; E78.5 Hyperlipidemia, unspecified; T45.515A Adverse effect of anticoagulants, initial encounter; K21.9 Gastro-esophageal reflux disease without esophagitis; Z86.73 Personal history of transient ischemic attack (TIA), and cerebral infarction without residual deficits; Z95.0 Presence of cardiac pacemaker; Z95.820 Peripheral vascular angioplasty status with implants and grafts; Z87.891 Personal history of nicotine dependence; Z88.9 Allergy status to unspecified drugs, medicaments and biological substances; Z95.1 Presence of aortocoronary bypass graft

== ENCOUNTER 2017-11-20 14:01 | Emergency (ER) | payer MEDICARE ==
[~2017-11-20 14:01] MED LIST changes: +FLORASTOR250 M1 PO; +IPRATROPIU0.5 MG/3 M NEB; +PREDNISONE10 MG PO
== END 2017-11-20 14:05 | disposition expired ==
LOC: ED 14:01
PROC: 5A12012 Performance of Cardiac Output, Single, Manual (ICD-10-PCS; principal; 2017-11-20)
DX: I46.9 Cardiac arrest, cause unspecified (principal); Z95.1 Presence of aortocoronary bypass graft
CPT/HCPCS: J0282